=== PATIENT | male | born 1955 | race Caucasian/White ===

== ENCOUNTER 2021-04-15 14:27 | Emergency (ER) | payer OTHER, MEDICARE, MEDICAID ==
[2021-04-15] MEDS ORDERED: Ondansetron 4 MG/2 ML SDV IVPUSH ONE (15:23)
[2021-04-15] MEDS ORDERED: HYDROmorphone 0.5 MG/0.5 ML Syringe IVPUSH ONE (15:23)
[2021-04-15] MEDS ORDERED: Sodium Chloride 0.9% 1,000 ML IV ONE ×2 (15:26→17:13)
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
[2021-04-15] MEDS: Sodium Chloride 0.9% 10 ML Syringe FLUSH PRN (15:41)
--- NOTE | 2021-04-15 16:12 | CR ---
Chest: Portable view of the chest was obtained. Comparison: No prior chest imaging is available. Diffuse interstitial change is seen throughout both sides of the chest. Heart size and mediastinum are within normal limits. Prior cervical spine surgery is seen. No acute osseous abnormality is otherwise seen. Impression: 1. Diffuse interstitial changes throughout both lungs. Findings could represent diffuse interstitial fibrosis. Please rule out COVID pneumonia. Diffuse acute bronchitis is also within the differential. 2. Prior cervical spine surgery. Diagnostic code #3
--- NOTE | 2021-04-15 16:21 | CT ---
CT lumbar spine Technique: Multiple axial sections were obtained from above the T11-12 disc inferiorly through the L5-S1 disc. Reconstructed coronal and sagittal images were obtained. Comparison: No prior lumbar spine study is available. Findings: T11-12: Severe disc space narrowing is noted with vacuum disc phenomena. Slight circumferential disc bulge is noted. Posterior disc maintains a concave margin. No central canal stenosis is seen. Neural foramina are felt to be patent. T12-L1: Disc height is maintained. Posterior disc is preserved. No central canal stenosis or neural foraminal stenosis is seen. L1-2: Mild disc space narrowing is seen. Diffuse circumferential disc bulge is noted. Posterior disc has a slight concave margin. Mild degenerative apophyseal change is noted. No central canal stenosis is seen. Neural foramina show no definite stenosis. L2-3: Slight circumferential disc bulge is seen. Posterior disc maintains a concave margin. Mild degenerative apophyseal change is noted. No central canal stenosis is seen. No definite neural foraminal stenosis is seen. L3-4: Slight circumferential disc bulge is noted. Posterior disc maintains a planar margin. Mild degenerative apophyseal change is seen. Central canal is maintained. Neural foramina are patent where the nerve roots exit. L4-5: Slight posterior disc space narrowing is seen. Diffuse circumferential disc bulge is noted. Severe degenerative apophyseal change is seen with thickening of the ligamentum flavum. Findings cause severe central canal stenosis. Mild bilateral neural foraminal stenosis is also noted. L5-S1: Posterior disc space narrowing is seen. Diffuse posterior disc bulge is seen. No central canal stenosis is seen. Neural foramina are felt to be patent where the nerve roots exit. Mild degenerative apophyseal change is seen. Diffuse anterior osteophytes are seen. No acute fracture or subluxation is seen. Impression: 1. Degenerative change as noted above. Most prominent finding is severe central canal stenosis with bilateral neural foraminal stenosis at L4-5. Diagnostic code #3
[2021-04-15] MEDS ORDERED: predniSONE 20 MG Tab PO ONE (17:11)
[2021-04-15] MEDS ORDERED: Ketorolac 30 MG/ML SDV IVPUSH ONE (17:17)
[2021-04-16] MEDS ORDERED: Ketorolac 30 MG/ML SDV IVPUSH ONE (11:54)
[2021-04-16] MEDS ORDERED: Ketorolac 60 MG/2 ML SDV IM ONE (12:12)
[2021-04-16] MEDS: Sodium Chloride 0.9% 10 ML Syringe FLUSH PRN (12:29)
== END 2021-04-16 14:55 | disposition home or self-care (01) ==
LOC: JD.ED 14:27
DX: M54.42 Lumbago with sciatica, left side (principal); M19.90 Unspecified osteoarthritis, unspecified site; R00.0 Tachycardia, unspecified; Z87.891 Personal history of nicotine dependence; Z20.822 Contact with and (suspected) exposure to COVID-19
CPT/HCPCS: 36415; 71045; 72131; 80053; 83735; 84443; 85025; 85379; 86140; 87635; 93005; 96372; 96374; 96375; 99285; J1170; J1885; J2405; J7030; J7512; 93010; 99284; U0002

== ENCOUNTER 2021-04-23 17:39 | Emergency (ER) | payer MEDICARE, MEDICAID | END 2021-04-23 18:20 | disposition left against medical advice (07) | LOC: JD.ED 17:39 | DX: Z53.21 Procedure and treatment not carried out due to patient leaving prior to being seen by health care provider (principal) ==

== ENCOUNTER 2021-04-28 10:04 | Emergency (ER) | payer MEDICARE, MEDICAID ==
[2021-04-28] MEDS ORDERED: FLU Vacc QS2021(65UP)/MF59C/PF 60 MCG/0.5 ML Syringe IM ONE (10:45)
[2021-04-28] MEDS ORDERED: Sodium Chloride 0.9% 10 ML Syringe FLUSH PRN (11:31)
[2021-04-28] MEDS ORDERED: LORazepam 2 MG/ML SDV IVPUSH ONE (11:32)
[2021-04-28] MEDS ORDERED: Ketorolac 30 MG/ML SDV IVPUSH ONE (11:32)
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
--- NOTE | 2021-04-29 09:56 | CR ---
Chest: Portable view of the chest was obtained. Comparison: Prior chest x-ray and 04/15/21. Diffuse interstitial change is noted. Findings are stable from prior exam. Heart size and mediastinum are normal. Prior cervical spine surgery is seen. Impression: 1. Stable chest x-ray from prior study. 2. Nothing acute is otherwise seen. Diagnostic code #2
== END 2021-04-28 14:45 | disposition home or self-care (01) ==
LOC: JD.ED 10:04
DX: M54.42 Lumbago with sciatica, left side (principal); F41.9 Anxiety disorder, unspecified; R06.02 Shortness of breath; R06.01 Orthopnea; Z72.0 Tobacco use
CPT/HCPCS: 36415; 71045; 80053; 83735; 85025; 86140; 87804; 96374; 96375; 99285; J1885; J2060; U0002

== ENCOUNTER 2024-06-30 08:18 | Emergency (ER) | payer MEDICAID, MEDICARE ==
[2024-06-30] MEDS: Metoclopramide 10 MG/2 ML SDV IVPUSH ONE (08:54)
[2024-06-30] MEDS: Dextrose 5%-Lactated Ringers 1,000 ML IV SCH (08:54)
[2024-06-30 08:58] LABS: BASOPHILS PERCENT AUTO 0.2 % (0.0-1.0); HEMATOCRIT 42.4 % (42.0-52.0); HEMOGLOBIN 15.3 gm/dl (14.0-18.0); IMMATURE GRAN ABSOLUTE AUTO 0.07 K/mm3 (0.00-0.05); IMMATURE GRAN PERCENT AUTO 0.4 % (0.0-0.4); LYMPHOCYTES PERCENT AUTO 5.4 % (24.0-44.0); MEAN CORPUSCULAR HEMOGLOBIN 30.8 pg (28.0-32.0); MEAN CORPUSCULAR HGB CONC 36.1 g/dl (32.0-36.0); MEAN CORPUSCULAR VOLUME 85.3 fl (83.0-99.0); MONOCYTES ABSOLUTE AUTO 2.1 K/mm3 (0.0-0.8); MONOCYTES PERCENT AUTO 11.3 % (0.0-8.0); NEUTROPHILS ABSOLUTE AUTO 15.2 K/mm3 (1.8-7.7); NEUTROPHILS PERCENT AUTO 82.7 % (41.0-71.0); PLATELET COUNT,PLT 195 K/mm3 (150-400); RED BLOOD CELL COUNT 4.97 M/mm3 (4.52-5.90); WHITE BLOOD CELL COUNT,WBC 18.32 K/mm3 (3.9-11.3)
[2024-06-30] MEDS: HYDROmorphone 0.5 MG/0.5 ML Syringe IVPUSH ONE ×2 (08:59→12:25)
[2024-06-30 09:15] LABS: INR 1.02; PROTHROMBIN TIME 10.8 SECONDS (9.7-12.0)
[2024-06-30] MEDS: Albuterol/Ipratropium 3.0-0.5 MG/3 ML Neb Soln NEB ONE (09:15)
[2024-06-30 09:16] LABS: PTT,PARTIAL THROMBOPLSTIN TIME 23.9 SECONDS (21.7-31.4)
[2024-06-30 09:19] LABS: SLIDE REVIEW ABNORMAL SMEAR
[2024-06-30 09:26] LABS: ALBUMIN 3.9 g/dl (3.4-5.0); ANION GAP 19.8 (5-15); BILIRUBIN TOTAL 1.3 mg/dL (0.2-1.0); BUN/CREATININE RATIO 23.6 (14-18); C-REACTIVE PROTEIN 1.68 mg/dL (<0.30); CREATININE 1.4 mg/dL (0.7-1.3); EST CRCL DRUG DOSING (CG) 45.17 mL/min; MAGNESIUM 1.4 mg/dL (1.8-2.4); POTASSIUM,K 4.8 mEq/L (3.5-5.1)
[2024-06-30 09:33] LABS: LACTIC ACID 3.6 mmol/L (0.4-2.0)
[2024-06-30] MEDS: Furosemide 40 MG/4 ML VIAL IVPUSH ONE (11:17)
[2024-06-30] MEDS: Lactated Ringers 1,000 ML IV SCH (11:18)
[2024-06-30] MEDS: Ondansetron 4 MG/2 ML SDV IVPUSH ONE (12:25)
== END 2024-06-30 13:40 | disposition home or self-care (01) ==
LOC: JD.ED 08:18
DX: R11.2 Nausea with vomiting, unspecified (principal); R19.7 Diarrhea, unspecified; E86.0 Dehydration; E11.10 Type 2 diabetes mellitus with ketoacidosis without coma; J44.9 Chronic obstructive pulmonary disease, unspecified; F17.210 Nicotine dependence, cigarettes, uncomplicated; Z79.899 Other long term (current) drug therapy
CPT/HCPCS: 36415; 71045; 80053; 83605; 83690; 83735; 83880; 84484; 85025; 85610; 85730; 86140; 93005; 94640; 96361; 96374; 96375; 96376; 99285; J1171; J1940; J2405; J2765; J7120; J7121; J7620-GY

== ENCOUNTER 2024-07-01 16:51 | Emergency (ER) | payer MEDICARE ==
[2024-07-01 18:20] LABS: BASOPHILS PERCENT AUTO 0.3 % (0.0-1.0); EOSINOPHILS PERCENT AUTO 0.3 % (0.0-6.0); HEMATOCRIT 41.2 % (42.0-52.0); HEMOGLOBIN 14.7 gm/dl (14.0-18.0); IMMATURE GRAN ABSOLUTE AUTO 0.03 K/mm3 (0.00-0.05); IMMATURE GRAN PERCENT AUTO 0.3 % (0.0-0.4); LYMPHOCYTES ABSOLUTE AUTO 1.6 K/mm3 (1.0-4.8); LYMPHOCYTES PERCENT AUTO 13.6 % (24.0-44.0); MEAN CORPUSCULAR HEMOGLOBIN 31.3 pg (28.0-32.0); MEAN CORPUSCULAR HGB CONC 35.7 g/dl (32.0-36.0); MEAN CORPUSCULAR VOLUME 87.7 fl (83.0-99.0); MEAN PLATELET VOLUME 9.4 fl (9.4-12.4); MONOCYTES ABSOLUTE AUTO 0.8 K/mm3 (0.0-0.8); MONOCYTES PERCENT AUTO 7.1 % (0.0-8.0); NEUTROPHILS ABSOLUTE AUTO 9.1 K/mm3 (1.8-7.7); NEUTROPHILS PERCENT AUTO 78.4 % (41.0-71.0); PLATELET COUNT,PLT 138 K/mm3 (150-400); WHITE BLOOD CELL COUNT,WBC 11.64 K/mm3 (3.9-11.3)
[2024-07-01 18:45] LABS: A/G RATIO 1.1 (1-2); ALBUMIN 3.9 g/dl (3.4-5.0); ANION GAP 14.7 (5-15); BILIRUBIN TOTAL 1.4 mg/dL (0.2-1.0); CALCIUM 9.9 mg/dL (8.5-10.1); EST CRCL DRUG DOSING (CG) 63.94 mL/min; POTASSIUM,K 3.7 mEq/L (3.5-5.1); PROTEIN TOTAL,TP 7.6 g/dl (6.4-8.2)
[2024-07-01 18:57] LABS: LACTIC ACID 1.4 mmol/L (0.4-2.0)
[2024-07-01 19:08] LABS: INR 1.02; PROTHROMBIN TIME 10.8 SECONDS (9.7-12.0)
[2024-07-01 19:10] LABS: PTT,PARTIAL THROMBOPLSTIN TIME 23.9 SECONDS (21.7-31.4)
[2024-07-01] MEDS: LORazepam 1 MG Tab PO ONE (21:08)
== END 2024-07-01 21:55 | disposition home or self-care (01) ==
LOC: JD.ED 16:51
DX: R07.89 Other chest pain (principal); J44.9 Chronic obstructive pulmonary disease, unspecified; E03.9 Hypothyroidism, unspecified; F17.210 Nicotine dependence, cigarettes, uncomplicated
CPT/HCPCS: 36415; 71045; 80053; 80307; 83605; 83880; 84484; 85025; 85610; 85730; 93005; 99285; A9270

== ENCOUNTER 2025-06-06 20:14 | Emergency (ER) | payer MEDICARE ==
[2025-06-06] MEDS ORDERED: Sodium Chloride 0.9% 10 ML Syringe FLUSH PRN (20:25)
[2025-06-06 20:35] LABS: BASOPHILS ABSOLUTE AUTO 0.1 K/mm3 (0.0-0.2); BASOPHILS PERCENT AUTO 0.7 % (0.0-1.0); EOSINOPHILS ABSOLUTE AUTO 0.2 K/mm3 (0.0-0.4); EOSINOPHILS PERCENT AUTO 1.5 % (0.0-6.0); IMMATURE GRAN ABSOLUTE AUTO 0.03 K/mm3 (0.00-0.05); IMMATURE GRAN PERCENT AUTO 0.3 % (0.0-0.4); LYMPHOCYTES ABSOLUTE AUTO 1.0 K/mm3 (1.0-4.8); LYMPHOCYTES PERCENT AUTO 9.4 % (24.0-44.0); MEAN PLATELET VOLUME 8.5 fl (9.4-12.4); MONOCYTES ABSOLUTE AUTO 1.2 K/mm3 (0.0-0.8); MONOCYTES PERCENT AUTO 11.6 % (0.0-8.0); NEUTROPHILS ABSOLUTE AUTO 8.0 K/mm3 (1.8-7.7); NEUTROPHILS PERCENT AUTO 76.5 % (41.0-71.0); NRBC ABSOLUTE 0.00 (0.00-0.02); NRBC PERCENT 0.0 % (0.0-0.2); PLATELET COUNT,PLT 156 K/mm3 (150-400); RED BLOOD CELL COUNT 5.23 M/mm3 (4.52-5.90); WHITE BLOOD CELL COUNT,WBC 10.42 K/mm3 (3.9-11.3)
[2025-06-06 21:00] LABS: A/G RATIO 0.9 (1-2); ALANINE AMINOTRANSFERASE,ALT 19 U/L (16-63); ASPARTATE AMNIOTRANSFERASE,AST 33 U/L (15-37); BILIRUBIN TOTAL 0.9 mg/dL (0.2-1.0); BLOOD UREA NITROGEN,BUN 9 mg/dL (7-18); CARBON DIOXIDE,CO2 26 mEq/L (21-32); CHLORIDE,CL 96 mEq/L (98-107); CREATININE 0.8 mg/dL (0.7-1.3); ESTIMATED GFR 95 mL/min (>60); GLUCOSE RANDOM 120 mg/dL (70-99); POTASSIUM,K 3.5 mEq/L (3.5-5.1); PROTEIN TOTAL,TP 8.5 g/dl (6.4-8.2); SODIUM,NA 136 mEq/L (136-145); TROPONIN I HIGH SENSITIVITY 7 pg/mL (<=76)
[2025-06-06] MEDS: Iopamidol 755 Mg/ML 100 ML Bottle IVPUSH ONE (21:25)
[2025-06-06] MEDS: cefTRIAXone 2 GM in Water For Injection, Sterile 20 ML IVPUSH ONE (23:22)
== END 2025-06-06 23:34 | disposition home or self-care (01) ==
LOC: JD.ED 20:14
DX: J18.9 Pneumonia, unspecified organism (principal); F17.200 Nicotine dependence, unspecified, uncomplicated; E78.00 Pure hypercholesterolemia, unspecified; Z79.899 Other long term (current) drug therapy
CPT/HCPCS: 36415; 71045; 71275; 80053; 83735; 83880; 84484; 85025; 85379; 93005; 96374; 99285; A4216; J0696; Q9967; 93010; 99284